=== PATIENT | female | born 1960 | race Caucasian/White ===

== ENCOUNTER 2018-09-07 01:28 | Emergency (ER) | payer OTHER ==
[2018-09-07 01:50] VITALS: BP 178/91; PULSE 93; TEMP 98.3; BMI 28.2
--- NOTE | 2018-09-07 02:12 | PDOC ---
History of Present Illness - General Chief Complaint: Pain Stated Complaint: PAIN Time Seen by Provider: 09/07/18 02:12 - History of Present Illness Initial Comments: 09/07/18 04:31 Ms. Almendarez is a 57 yo female w/ pmh of DM who presents for evaluation of rash on chest. Patient reports she has previously been evaluated by PCP for this rash and given nystatin cream however stopped use after 1 day of use last week. Patient reports rash is uncomfortable. The patient denies chest pain, shortness of breath, headache and dizziness. Denies fever, chills, nausea, vomit, diarrhea and constipation. Denies dysuria, frequency, urgency and hematuria. Past History - Past Medical History Allergies/Adverse Reactions: Allergies Allergy/AdvReac Type Severity Reaction Status Date / Time No Known Allergies Allergy Verified 09/07/18 01:50 Home Medications: Ambulatory Orders Fluconazole [Diflucan] 150 mg PO ONCE #1 tablet 09/07/18 Nystatin Powder [Nystop Powder -] 60 gm TP TID #1 powder 09/07/18 - Suicide/Smoking/Psychosocial Hx Smoking History: Never smoked Have you smoked in the past 12 months: No Information on smoking cessation initiated: No Hx Alcohol Use: No Drug/Substance Use Hx: No Review of Systems - Review of Systems Comments:: 09/07/18 04:32 GENERAL/CONSTITUTIONAL: No fever or chills. No weakness. HEAD, EYES, EARS, NOSE AND THROAT: No change in vision. No ear pain or discharge. No sore throat. CARDIOVASCULAR: No chest pain or shortness of breath RESPIRATORY: No cough, wheezing, or hemoptysis. GASTROINTESTINAL: No nausea, vomiting, diarrhea or constipation. GENITOURINARY: No dysuria, frequency, or change in urination. MUSCULOSKELETAL: No joint or muscle swelling or pain. No neck or back pain. SKIN: +Rash below breasts bilaterally. NEUROLOGIC: No headache, vertigo, loss of consciousness, or change in strength/ sensation. ENDOCRINE: No increased thirst. No abnormal weight change HEMATOLOGIC/LYMPHATIC: No anemia, easy bleeding, or history of blood clots. ALLERGIC/IMMUNOLOGIC: No hives or skin allergy. *Physical Exam - Vital Signs Last Vital Signs Temp Pulse Resp BP Pulse Ox 98.3 F 93 H 18 178/91 H 98 09/07/18 01:30 09/07/18 01:30 09/07/18 01:30 09/07/18 01:30 09/07/18 01:30 - Physical Exam Comments: 09/07/18 04:33 GENERAL: Awake, alert, and fully oriented, in no acute distress HEAD: No signs of trauma, normocephalic, atraumatic EYES: PERRLA, EOMI, sclera anicteric, conjunctiva clear ENT: Auricles normal inspection, hearing grossly normal, nares patent, oropharynx clear without exudates. Moist mucosa NECK: Normal ROM, supple, no lymphadenopathy, JVD, or masses LUNGS: No distress, speaks full sentences, clear to auscultation bilaterally HEART: Regular rate and rhythm, normal S1 and S2, no murmurs, rubs or gallops, peripheral pulses normal and equal bilaterally. ABDOMEN: Soft, nontender, normoactive bowel sounds. No guarding, no rebound. No masses EXTREMITIES: Normal inspection, Normal range of motion, no edema. No clubbing or cyanosis. NEUROLOGICAL: Cranial nerves II through XII grossly intact. Normal speech, normal gait, no focal sensorimotor deficits SKIN: +Florid shazia-like rash inferior to breasts bilaterally. Medical Decision Making - Medical Decision Making 09/07/18 04:33 Ms. Almendarez is a 57 yo female w/ pmh as described who presents for evaluation of shazia rash failing nystatin cream therapy. Diflucan treatment given w/ additional Rx for next week sent to patient's pharmacy (and additionaly nystatin powder Rx). Educated patient on proper use. Patient verbalized understanding and agreement and will comply. Discharging to home. *DC/Admit/Observation/Transfer Diagnosis at time of Disposition: Candidiasis of breast - Discharge Dispostion Disposition: HOME Condition at time of disposition: Fair - Prescriptions Prescriptions: Fluconazole [Diflucan] 150 mg PO ONCE #1 tablet Nystatin Powder [Nystop Powder -] 60 gm TP TID #1 powder - Referrals Referrals: Jose Ram MD [Primary Care Provider] - - Patient Instructions Printed Discharge Instructions: Yeast Infection-Skin Additional Instructions: You were evaluated today in the ER for your rash. We sent a prescriptions to your pharmacy. Please take all medications as proscribed. Follow-up with primary care physician in 2-3 days for further evaluation. Return to ER if any fever, chills, pain, or other concerning symptoms. Print Language: GUINEAN - Post Discharge Activity
--- NOTE | 2018-09-07 02:14 | PDOC ---
Attending Attestation - Resident Resident Name: Cisco Teresa - HPI HPI: 09/13/18 01:17 Pt presents to the ED complaining of red rash underneath her breasts that has not resolved with one day of nystatin cream. Denies other complaints. - Physicial Exam PE: 09/13/18 01:17 Agree with resident exam. PAtient is well appearing and in no acute distress. + candidal rash underneath breasts. - Medical Decision Making 09/13/18 01:18 Pt presents to the Ed complaining of candidal rash. Will treat with diflucan and nystatin powder. Will discharge with instructions to follow up with her PMD.
[2018-09-07] MEDS ORDERED: FLUCONAZOLE 50 MG TABLET PO ONE (04:27)
[2018-09-07] MEDS ORDERED: FLUCONAZOLE 100 MG TABLET (UD) ONE (04:39)
== END 2018-09-07 04:49 | disposition home or self-care (01) ==
LOC: JER 01:28
DX: B37.2 Candidiasis of skin and nail (principal); E11.9 Type 2 diabetes mellitus without complications
CPT/HCPCS: 99281-25; 99282-25